=== PATIENT | male | born 1995 | race Caucasian/White ===

== ENCOUNTER 2024-06-20 21:47 | Emergency (ER) | payer SELFPAY ==
[~2024-06-20] VITALS: Ht 172.7 cm; Wt 62.0 kg
[2024-06-20 21:57] VITALS: TEMP 96.6; O2SAT 100
[2024-06-20] MEDS: SODIUM CHLORIDE 0.9% 1,000 ML IV ONE (22:45)
[2024-06-20] MEDS: ONDANSETRON HCL 4MG/2ML INJ IV ONE (22:46)
[2024-06-20 23:52] VITALS: BP 115/61; PULSE 73; RESP 19; O2SAT 100
== END 2024-06-20 23:57 | disposition home or self-care (01) ==
LOC: ER 21:47
DX: T51.0X1A Toxic effect of ethanol, accidental (unintentional), initial encounter (principal); Y92.9 Unspecified place or not applicable
CPT/HCPCS: 99283; 96374; 96361; J2405; J7030